=== PATIENT | male | born 1980 | race African-American/Black ===

== ENCOUNTER 2017-04-02 17:42 | Emergency (ER) | payer SELFPAY | END 2017-04-02 18:02 | disposition home or self-care (01) | LOC: BURERS 17:42 | DX: S39.012A Strain of muscle, fascia and tendon of lower back, initial encounter (principal); F17.210 Nicotine dependence, cigarettes, uncomplicated; V49.9XXA Car occupant (driver) (passenger) injured in unspecified traffic accident, initial encounter | CPT/HCPCS: 99283 ==

== ENCOUNTER 2022-06-07 22:17 | Emergency (ER) | payer SELFPAY ==
[2022-06-07] MEDS ORDERED: AMOXicillin 250 MG CAP ONE (22:34)
[2022-06-07] MEDS ORDERED: HYDROcodone/Acetaminophen 10/325 mg Tablet ONE (22:34)
== END 2022-06-07 22:35 | disposition home or self-care (01) ==
LOC: BURERS 22:17
DX: K04.7 Periapical abscess without sinus (principal); F17.210 Nicotine dependence, cigarettes, uncomplicated
CPT/HCPCS: 99283